=== PATIENT | female | born 1940 | race Caucasian/White ===

== ENCOUNTER 2016-07-20 12:40 | Emergency (ER) | payer MEDICARE, OTHER ==
[2016-07-20 11:08] LABS: BASOPHILS 0.3 %; BASOPHILS ABSOLUTE 0.02 10/3/uL (0.0-0.16); EOSINOPHILS 0.7 %; EOSINOPHILS ABSOLUTE 0.05 10/3/uL (0.0-0.53); IMMATURE GRANULOCYTES 0.3 %; IMMATURE GRANULOCYTES ABSOLUTE 0.02 10/3/uL (0.0-0.11); LYMPHOCYTES 16.7 %; LYMPHOCYTES ABSOLUTE 1.22 10/3/uL (0.67-4.30); MEAN PLATELET VOLUME 12.5 fL (9.2-13.0); MONOCYTES 6.8 %; NEUTROPHILS 75.2 %; NEUTROPHILS ABSOLUTE 5.49 10/3/uL (2.02-8.40); PLATELET COUNT 174 10/3/uL (150-400); RBC DISTRIBUTION WIDTH 16.1 % (12.0-16.0); RED CELL COUNT 4.53 10/6/uL (4.0-5.6); WHITE BLOOD CELLS 7.3 10/3/uL (4.5-10.5)
[2016-07-20 11:09] LABS: HEMATOCRIT 43.5 % (36.0-48.0); HEMOGLOBIN 13.5 g/dL (12.0-16.0); MANUAL DIFF NO %; MEAN CORPUSCULAR HEMOGLOB 29.8 pg (26.0-34.0)
[2016-07-20 11:14] LABS: ASCORBIC ACID (UR NOT ORDER) NEG (NEG); BILIRUBIN, URINE NEGATIVE (NEG); ER URINALYSIS TAT 0 Hrs 10 Mins; KETONE, URINE NEGATIVE (NEG); LEUKOCYTE ESTERASE(NOT OR NEG (NEG); NITRITE (URINE) NEG (NEG); WBC (NOT ORDERED) (RFLEX) 1 (0-5)
[2016-07-20 11:16] LABS: INTERNATIONAL NORMAL RATI 1.3 UNITS (-); PARTIAL THROMBO TIME 31.2 SEC (22.5-37.2)
[2016-07-20 11:23] LABS: CALCIUM, SERUM 9.3 MG/DL (8.5-10.4); CHEST PAIN PROFILE TAT 0 Hrs 19 Mins; CHLORIDE, SERUM 105 MMOL/L (96-112); CO2 (CARBON DIOXIDE) 30 MMOL/L (24-34); CREATININE 0.77 MG/DL (0.55-1.02); GFR AFRICAN AMERICAN 86 ML/MIN (>=60); GFR NON AFRICAN AMERICAN 74 ML/MIN (>=60); SODIUM, SERUM 143 MMOL/L (135-148); TROPONIN I <0.02 NG/ML (<0.05)
[2016-07-20 11:25] LABS: BUN (BLOOD UREA NITROGEN) 19 MG/DL (6-23); GLUCOSE, SERUM 106 MG/DL (60-99)
[2016-07-20 11:26] LABS: PROTIME (NOT ORD) 15.8 SEC (12.0-14.5)
[2016-07-20 11:29] LABS: PLATELET ESTIMATE ADQ (ADEQUATE)
[2016-07-20 11:30] LABS: GIANT PLATELET OCC; RBC MORPHOLOGY NORM (NORMAL)
[~2016-07-20 12:40] MED LIST: ACCUNEB INH; ASAB PO; BETAPACE80 PO; BUSPAR15 M1 PO; COZ50 PO; HYGROTON 25 MG25 MG PO; LIPITOR40 PO; P10 PO; PRILOSEC40 MG PO; PROAIR HFA INH; REFRESH1 % OP; SINGULAIR1 PO; VITAMIN D1000 UNI1 PO; VITC500 PO
[2016-12-25] MEDS ORDERED: AMOXIL875 PO (11:26)
[2016-12-25] MEDS ORDERED: AUG875 PO (11:26)
== END 2016-07-20 13:13 | disposition home or self-care (01) ==
LOC: ER 12:40
PROVIDERS: Emergency Medicine
DX: R00.2 Palpitations (principal); K21.9 Gastro-esophageal reflux disease without esophagitis; F41.9 Anxiety disorder, unspecified; Z95.0 Presence of cardiac pacemaker; Z87.01 Personal history of pneumonia (recurrent); Z88.8 Allergy status to other drugs, medicaments and biological substances; Z79.82 Long term (current) use of aspirin; Z79.899 Other long term (current) drug therapy
CPT/HCPCS: 71010; 80048; 81001; 83735; 84484; 85025; 85610; 85730; 93005; 93288; 99285

== ENCOUNTER 2016-09-12 19:22 | Inpatient (IN) | payer MEDICARE, OTHER ==
--- NOTE | ~2016-09-12 | HP ---
History And Physical [address] [address] NAME: DONTA VIZCARRA : 38 STATUS : ADM IN PAT#: [id number] AGE: 75 ADM/REG DATE : 09/12/16 MR#: [id number] REPORT SERV DATE: 09/13/16 DICTATED BY: ISAC OWENS DATE: 09/13/16 REPORT STATUS : Draft TRANSCRIBED BY: MODL DATE: 09/13/16 DATE OF ADMISSION: 09/12/2016 PHYSICIAN: Isac Owens M.D., Ph.D, F.A.C.C. HISTORY OF PRESENT ILLNESS: Ms Vizcarra is a 75-year-old woman with a history of paroxysmal atrial fibrillation, morbid obesity, sleep apnea, and chronic lung disease whom we have known for many years. She felt poorly last week with generalized weakness and fever. She went to [facility] thinking that she had pneumonia, which she had recurrently in the past. She was evaluated there by the hospitalist program as well as Infectious Disease. She had group B strep in her blood. Had an echo with a GUCCI that suggested a vegetation on the pacemaker lead. Has been on antibiotics and was transferred here for further evaluation per the patient's request. She currently feels a lot better. She has no fevers or chills. She has no nausea. She has chronic dyspnea without change, occasional wheeze. She has no palpitations or lightheadedness. She has no sputum production. REVIEW OF SYSTEMS: As per the history of present illness. Ten other systems are negative. PAST MEDICAL HISTORY: 1. Bronchiectasis and asthma with recurrent pneumonia. 2. Sleep apnea. 3. Atrial fibrillation with history of ablation by Dr. Amanda. 4. Pacemaker placement. Reportedly pacemaker dependent. 5. Hypertension. 6. Morbid obesity. FAMILY HISTORY: Noncontributory. SOCIAL HISTORY: The patient is . No tobacco use is reported. ALLERGIES: SUDAFED, FEXOFENADINE, DEXTROMETHORPHAN. HOME MEDICATIONS: Include acetaminophen, albuterol, Eliquis 5 p.o. b.i.d., Brovana, ascorbic acid, Lipitor 40 at bedtime, Pulmicort, BuSpar 15 daily, carvedilol 6.25 mg p.o. b.i.d., Maxipime, vitamin D, B12, Flovent, Lasix 40 p.o. b.i.d., lisinopril 10 daily, Claritin 10 daily, Medrol 32 daily, Protonix, potassium, Betapace 80 p.o. b.i.d. PHYSICAL EXAMINATION: VITAL SIGNS: Heart rate 68, blood pressure 164/75. GENERAL: The patient is pleasant, obese white female, in no apparent distress. HEENT: Conjunctivae are anicteric, no xanthelasma, lips without cyanosis. NECK: Supple, normal JVP, carotids +2 without bruit. LUNGS: Clear to auscultation bilaterally, no wheezes, rales or rhonchi. Decreased breath sounds in the bases. CARDIOVASCULAR: Regular rate and rhythm. Normal S1 and S2 with somewhat distant heart History And Physical [address] [address] NAME: DONTA VIZCARRA : 38 STATUS : ADM IN [facility]#: [id number] AGE: 75 ADM/REG DATE : 09/12/16 MR#: [id number] REPORT SERV DATE: 09/13/16 DICTATED BY: ISAC OWENS DATE: 09/13/16 REPORT STATUS : Draft TRANSCRIBED BY: CONNOR DATE: 09/13/16 sounds. No murmur or rub. PMI is nondisplaced. ABDOMEN: Obese, soft, nontender, nondistended, with normal bowel sounds. No hepatomegaly. EXTREMITIES: Mild chronic lower extremity edema. No clubbing or cyanosis. NEURO/PSYCH: Alert and oriented to person, place and time. No obvious neurologic deficits. Mood and affect normal. DATA: Labs pending. Telemetry shows AV paced rhythm. IMPRESSION: 1. 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 2. Atrial fibrillation, on chronic anticoagulation. 3. Morbid obesity. 4. History of bronchiectasis/asthma with recurrent pneumonias. 5. Sleep apnea. 6. Hypertension. 7. History of pacemaker placement with ablation by Dr. Amanda. Reportedly pacemaker dependent. RECOMMENDATIONS: Ms. Vizcarra presented with a febrile illness, had group B strep positive blood cultures at [facility], and a GUCCI suggesting vegetation on the pacemaker lead. She is clinically better on antibiotics. We will get Infectious Disease involved to see if they agree with that plan. I am going to get Pulmonary involved given the multiple pulmonary medicines that she is on, which were added at [facility] to see if she is on the appropriate treatment and how long to use her steroids. I will recheck labs here. Keep her n.p.o. Switch her over to heparin in case she does need a procedure. WO/MODL Isac Owens M.D., Ph.D, F.A.C.C. / [id number] CC: Isac Owens M.D., Ph.D, F.A.C.C. Keith Smith M.D.
--- NOTE | ~2016-09-12 | OP ---
Record Of Operation [facility] [address] [place]. [address] NAME: DONTA VIZCARRA : 38 STATUS : ADM IN PAT#: [id number] AGE: 75 ADM/REG DATE : 09/12/16 MR#: [id number] REPORT SERV DATE: 09/18/16 DICTATED BY: NASH STARR III DATE: 09/18/16 REPORT STATUS : Draft TRANSCRIBED BY: MODL DATE: 09/18/16 DATE OF PROCEDURE: 09/18/2016 PREOPERATIVE DIAGNOSIS: Left hydroureteronephrosis. POSTOPERATIVE DIAGNOSIS: Left ureteral calculus. PROCEDURE: Cystoscopy, left retrograde pyelogram, left ureteroscopy, and basket extraction of stone, removal of ureteral tissue, and stent placement. SURGEON: Nash Starr M.D. ANESTHESIA: General. SPECIMEN: Urine for culture. DRAINS: A 6 x 24 cm double-J ureteral stent. INDICATION: Ms. Vizcarra is a 75-year-old white female, found to have left hydroureteronephrosis. The consent is obtained for the above procedure. PROCEDURE IN DETAIL: After consent was obtained, the patient was identified. She was taken to the OR and put to sleep. She was positioned in the low lithotomy position and prepped and draped in the usual fashion. The 22-Burmese cystoscope was inserted into the bladder. The bladder appeared fairly normal. A cone-tipped ureteral catheter was inserted into the left ureteral orifice and a retrograde study was obtained showing a change in the diameter of the ureter in the pelvic ureter. Glidewire was passed up the left ureter into the dilated collecting system. A ureteral access sheath was used to dilate the transmural ureter. Rigid ureteroscopy was then performed and the stone was encountered. It was engaged with a Nitinol basket and then removed and passed off as specimen. The area, where the stone was, had some added tissue that was barely attached to the wall of the ureter. It was grasped with a basket and removed and passed off as specimen as well. The ureter was inspected. No other fragments were noted. The ureteroscope was removed. The guidewire was backloaded through the cystoscope, which was inserted into the bladder. A 6 x 24 cm double- J ureteral stent was advanced over the wire. When in position, the wire was removed, the stent was noted to coil in the dilated collecting system as well as the bladder. A string was left attached. The bladder was then drained. The scope removed. A knot was tied in the stent string closer to the meatus and excess cut off. The patient was awakened and taken to the recovery in stable condition. PH/MODL Nash Starr III, M.D. Record Of [address] [address] NAME: DONTA VIZCARRA : 38 STATUS : ADM IN PAT#: [id number] AGE: 75 ADM/REG DATE : 09/12/16 MR#: [id number] REPORT SERV DATE: 09/18/16 DICTATED BY: NASH STARR III DATE: 09/18/16 REPORT STATUS : Draft TRANSCRIBED BY: MODFrancisca DATE: 09/18/16 / [id number] CC: Isac Owens M.D., Ph.D, F.A.C.C. Keith Smith M.D.
--- NOTE | ~2016-09-12 | CN ---
Consultation Report [facility] [address] [place]. [address] NAME: DONTA RASHID : 38 STATUS : ADM IN PAT#: [id number] AGE: 75 ADM/REG DATE : 09/12/16 MR#: [id number] REPORT SERV DATE: 09/13/16 DICTATED BY: NASH CHOWDHURY DATE: 09/13/16 REPORT STATUS : Draft TRANSCRIBED BY: MODFrancisca DATE: 09/13/16 INFECTIOUS DISEASE CONSULT DATE OF CONSULTATION: REASON FOR CONSULT: Possible endocarditis. HISTORY OF PRESENT ILLNESS: A 75-year-old white lady with history of atrial fibrillation, status post ablation with pacemaker, chronic bronchiectasis, asthma, sleep apnea, obesity, hypertension, who was transferred from [facility] because of vegetation on the pacemaker wire and positive blood cultures for group B strep. Information is obtained from the patient as well as notes from [facility]. They do not have the actual culture results. She was hospitalized in January at [facility] with a "Streptococcus" pneumonia. She states, she has had dyspnea on exertion for maybe a year ago. She had some dental cleaning about a month ago. On 09/05/2016 while she was eating out, she had severe chills. She took some medication for it and did okay for a couple of days, but then on the 09/08/2016 while about to eat, she had again chills associated with shortness of breath, chest tightness, and followed by fever. She went to [facility], where they noticed wheezes and rhonchi. A chest x- ray is suggestive of pneumonia, so she got admitted. She might have been started on something like Rocephin and azithromycin. I do not have that information. LABORATORY WORK: Admission lab work showed a WBC of 10, hemoglobin 13, platelets 116. Lactic acid 2.1. Urinalysis with red blood cells. Admission blood cultures grew reportedly group B strep and a sputum culture grew Pseudomonas. Upon discussing with the patient, she has no toothaches or throat soreness and she had dental cleaning about a month ago. She reports, no nausea, no abdominal pain. She has multiple bowel movements a day, but that is a chronic finding. She has a history of hemorrhoids that bother her from time to time, but apparently not at this time. She reports some pain in the right great toenail on the lateral aspect of the nail, but no other skin lesions. She has prosthetic knees, but they do not seem to bother her. She has chronic problems with bladder emptying, where she dribbles, but she reports no dysuria. At [facility], she might have had a CT of the chest and I just saw in the pulmonary notes that there maybe a new right lung nodule. I do not have that report or the film. She had an echocardiogram initially followed by GUCCI that reportedly showed no problems with the valves, but there may be a vegetation on the pacemaker lead, ejection fraction was 55% to Consultation Report [facility] [address] [place]. [address] NAME: DONTA RASHID : 38 STATUS : ADM IN PAT#: [id number] AGE: 75 ADM/REG DATE : 09/12/16 MR#: [id number] REPORT SERV DATE: 09/13/16 DICTATED BY: NASH CHOWDHURY DATE: 09/13/16 REPORT STATUS : Draft TRANSCRIBED BY: CONNOR DATE: 09/13/16 60%. ID was consulted a couple of days ago and Dr. Lennon, stopped azithromycin and then switched yesterday from cefepime to Rocephin. Reportedly, repeat blood cultures were negative. Here at [facility], she is afebrile. Blood pressure is high. She is on 3 L of oxygen. Chest x-ray shows small effusions, left more than right. Lab work shows a CO2 of 38, creatinine 0.6, WBC 14, hemoglobin 12. PAST MEDICAL HISTORY: As I mentioned above plus history of hysterectomy for uterine cancer, tonsillectomy, cataract surgery. In 2012, she had an EGD that showed hiatal hernia, and a colonoscopy that showed hemorrhoids and polyps. ALLERGIES: ACCORDING TO THE CHART, DEBORAH CAUSE HEADACHES. FAMILY HISTORY: Heart disease. SOCIAL HISTORY: She is . MEDICATIONS ON ADMISSION: Albuterol, Eliquis, Brovana, vitamin C, Lipitor, Pulmicort, BuSpar, carvedilol, Rocephin, vitamin D, vitamin B12, Flovent, Lasix, hydralazine as needed, lisinopril, Claritin, Solu-Medrol, Protonix, potassium, and sotalol. PHYSICAL EXAMINATION: GENERAL: On exam, she is afebrile. She is alert. HEENT: Oral mucosa with minimal redness. No lesions. LUNGS: Decreased sounds. No wheezes, rhonchi, or rales. HEART: Distant sounds due to thick chest wall. No obvious murmurs. ABDOMEN: Very obese, nontender to palpation. No skin lesions under the abdominal pannus. EXTREMITIES: Legs with some dark linear bruises on posterior thighs, tenderness to palpation over the lateral aspect of the right great toe nail, where she has little bit of erythema. Knees without inflammatory changes. Hands and feet without signs of emboli. ASSESSMENT AND PLAN: 1. Group B strep septicemia. 2. Pacemaker wire vegetation by GUCCI done at [facility]. 3. History of obesity, sleep apnea, hypertension, atrial fibrillation, bronchiectasis. 4. Bilateral knee replacements. Potential sources of bacteremia, the hemorrhoids, some mild right great toe paronychia. She also had some dental cleaning about some months ago. The question is whether the pacemaker wire needs to be removed. Having a clot on the pacemaker wire is common, but obviously cannot tell if this is an infected clot. I Consultation Report [address] [place]. [address] NAME: DONTA RASHID : 38 STATUS : ADM IN PAT#: [id number] AGE: 75 ADM/REG DATE : 09/12/16 MR#: [id number] REPORT SERV DATE: 09/13/16 DICTATED BY: NASH CHOWDHURY DATE: 09/13/16 REPORT STATUS : Draft TRANSCRIBED BY: MODFrancisca DATE: 09/13/[address] Owens, who tells me that extraction be difficult and she is also pacemaker dependent. The illness seem to have an acute onset which would make an endocarditis less likely, but would not rule that out. There is a mention of possible new right lung nodule on the CT of the chest and we will try to get that report to look for any evidence of emboli. Antibiotics will be used, we will continue Rocephin. I discussed with the patient and the . Alternatively, another option would be to continue with a course of antibiotics as long as she is clinically improving, then follow, monitor her clinically, and microbiologically off antibiotics for evidence of recurrence of infection. I discussed with the patient and the . OCTAVIANO/CONNOR Nash Chowdhury M.D. / [id number] CC: Isac Owens M.D., Ph.D, F.A.C.C. Keith Smith M.D.
--- NOTE | ~2016-09-12 | DS ---
Discharge Summary [facility] [address] [place]. [address] NAME: DONTA RASHID : 38 STATUS : DIS IN PAT#: [id number] AGE: 75 ADM/REG DATE : 09/12/16 MR#: [id number] REPORT SERV DATE: 10/02/16 DICTATED BY: ISAC BONILLA DATE: 10/01/16 REPORT STATUS : Draft TRANSCRIBED BY: MODL DATE: 10/01/16 Data Collection from hospitalization DISCHARGE DIAGNOSES: 1. Bacteremia. 2. Paroxysmal atrial fibrillation. 3. Hydronephrosis. 4. Hematoma. 5. Hypertension. 6. Morbid obesity. 7. Sleep apnea. 8. Bronchiectasis. 9. Asthma. 10.Gastroesophageal reflux disease. 11.History of skin cancer. 12.History of uterine cancer. 13.Anxiety. 14.Anemia. CONSULTATIONS: Dr. Sumaya Chen, Dr. Nash Escudero, Dr. Nash Barrios. PROCEDURES PERFORMED: 1. Cystoscopy; left retrograde pyelogram; left ureteroscopy and basket extraction of stone; removal of ureteral tissue and stent placement, 09/18/2016. 2. CT scan of the abdomen and pelvis with contrast, 09/16/2016. PATHOLOGY: Left ureteral soft-tissue biopsy-dystrophic calcification and chronic inflammation. No tumor seen. DISCHARGE MEDICATIONS: Albuterol 1.25 mg via inhaler every six hours as needed, Proventil one nebulized inhaler every four hours as needed, Eliquis 5 mg twice a day, vitamin C 250 mg daily, Lipitor 40 mg at bedtime, BuSpar 5 mg twice a day, Coreg 6.25 mg twice a day, Zyrtec 10 mg daily, vitamin D 1000 units daily, vitamin B12 50 mcg daily, Flonase nasal spray one to two sprays nasally daily as needed, Breo Ellipta one puff via inhaler daily, Lasix 40 mg daily, Prinivil 20 mg daily, potassium chloride SR 20 mEq daily, Betapace 80 mg twice a day. CONDITION AT DISCHARGE: Stable. DISPOSITION: The patient was discharged home on a low-sodium, low-cholesterol, cardiac diet with activities as instructed. She would follow up with Dr. Isac Bonilla two to three weeks following discharge. She would follow up with Dr. Nash Escudero as instructed. HOSPITAL COURSE: This is a 75-year-old female, who has a history of paroxysmal atrial fibrillation, morbid obesity, sleep apnea, and chronic lung disease. We had known her for many years. She has felt poorly over the past week with generalized weakness and fevers. She went to [facility] [place] thinking that she had pneumonia, which she has had recurrently in the past. She was evaluated there by the hospitalist group as well as Infectious Disease. She had group B strep in her blood. An echocardiogram with transesophageal echocardiogram Discharge Summary [address] [address] NAME: DONTA RASHID : 38 STATUS : DIS IN PAT#: [id number] AGE: 75 ADM/REG DATE : 09/12/16 MR#: [id number] REPORT SERV DATE: 10/02/16 DICTATED BY: ISAC BONILLA DATE: 10/01/16 REPORT STATUS : Draft TRANSCRIBED BY: CONNOR DATE: 10/01/16 suggested a vegetation on the pacemaker leads. She has been on antibiotics and was transferred here for further evaluation at the patient's request. She currently states she felt a lot better. She had no fevers or chills at this time. She had no nausea. She does have chronic dyspnea without change and occasional wheeze. She was admitted to the hospital for further evaluation and treatment. Upon admission, she was felt to have possible/probable vegetation of the pacemaker lead. Telemetry had shown AV paced rhythm. She does have atrial fibrillation and is on chronic anticoagulation. She was going to be held n.p.o. She would be switched over to heparin in case she does need to undergo a procedure. The following day, she was seen by Dr. Sumaya Chen regarding underlying pulmonary disease with pulmonary medications. Chest x-ray revealed clear lungs. The patient has strep bacteremia in the setting of a patient who has bronchiectasis and possible pacemaker wire vegetation. Repeat transesophageal echocardiogram was going to be performed. Rocephin would be continued. The patient said she is on a nebulizer at home with Breo. It was felt this was most likely an albuterol nebulizer with Breo. Due to her obesity, it was recommended that she probably go on Pulmicort, budesonide, only with as needed albuterol. A flutter valve was going to be started. The patient was to use her home CPAP at night for obstructive sleep apnea. She also has obesity hypoventilation syndrome. She has an elevated bicarbonate and chronic hypoxia. She was also seen by Dr. Nash Escudero regarding possible endocarditis. Her blood pressure was elevated. She was on 3 L of oxygen. She was felt to have group B strep septicemia. Potential sources of bacteremia, included hemorrhoids and she does have some mild right great toe paronychia. She also had a dental cleaning about a month prior to this admission. The question was whether the pacemaker wire would need to be removed. Having a clot on the pacemaker wire is common, but obviously we could not tell if this was an infected clot. It was felt that extraction would be difficult as she is also pacemaker dependent. The illness seemed to have an acute onset, which would make an endocarditis less likely, but we would not rule that out. There was a mention of possible new right lung nodule on CT scan of the chest. We would try to review that report to look for any evidence of emboli. Rocephin was continued. On the , her blood pressure was still elevated. She was afebrile. Blood cultures were negative at this time. Rocephin was continued. On 09/15/2016, she complained of having some left leg pain. She was in a normal sinus rhythm. The patient had left upper thigh and groin pain after trying to get up. On 09/16/2016, she had no chest pain. She was in a normal sinus rhythm. White count was 13. The patient had no pain in the right great toe. There was some pain in the right upper thigh, like a muscle cramp. A CT scan of the abdomen and pelvis with contrast was performed. The right great toe did not appear infected. The patient and her favored medical therapy. Treatment options had been discussed, including pacemaker removal and wire removal versus medical treatments with long-term IV antibiotics. On the , she remained in a normal sinus rhythm. The patient was seen by Dr. Ramon Morley. The patient's right great toe had no erythema or edema at this time. There was no drainage. There were no signs of infection at this time. He was going to follow the patient as an outpatient. She was also seen by Dr. Nash Barrios. The patient had left hydroureteronephrosis down into the distal ureter and feels as if there is a stone in the area where the hydronephrosis ends. Creatinine level was normal. It was felt that she would need ureteroscopic evaluation for left hydroureteronephrosis. On the , the patient was taken to the Discharge Summary [address] [place]. [address] NAME: DONTA RASHID : 38 STATUS : DIS IN PAT#: [id number] AGE: 75 ADM/REG DATE : 09/12/16 MR#: [id number] REPORT SERV DATE: 10/02/16 DICTATED BY: ISAC BONILLA DATE: 10/01/16 REPORT STATUS : Draft TRANSCRIBED BY: MODFrancisca DATE: 10/01/[address] Nash Barrios, where she underwent the above-mentioned procedure. She tolerated this well and there were no complications. She still had some left thigh pain with a left thigh hematoma. Anticoagulation was on hold at this time. Blood cultures were negative. Urinalysis was negative. The left leg pain began to decrease a little. She had no abdominal pain. Postoperatively, a urine culture was obtained. On 09/19/2016, white count was 10.7. Discharge planning was performed. On 09/20/2016, she was feeling well. She had no complaints. There were no symptoms. Her lungs were clear. She was going to be on home outpatient IV antibiotic therapy. Repeat urinalysis and urine culture were obtained. Her thigh pain had improved. She had no new complaints. Discharge instructions were given. Due to her improved and stable condition, she was discharged home with the above-stated instructions. Information collected by: Nayely Phillip I submit the above information as my discharge summary. ALEXANDRIA/CONNOR Isac Bonilla M.D., Ph.D, F.A.C.C. / [id number] CC: Isac Bonilla M.D., Ph.D, F.A.C.C. Roosevelt Dunn M.D. Paul Henson III, M.D. Brian Burgan, D.PFinn
--- NOTE | ~2016-09-12 | CN ---
Consultation Report [facility] [address] [place]. [address] NAME: DONTA VIZCARRA : 38 STATUS : ADM IN PAT#: [id number] AGE: 75 ADM/REG DATE : 09/12/16 MR#: [id number] REPORT SERV DATE: 09/18/16 DICTATED BY: NASH STARR III DATE: 09/18/16 REPORT STATUS : Draft TRANSCRIBED BY: MODL DATE: 09/18/16 CONSULTATION DATE OF CONSULTATION: REASON FOR CONSULTATION: Left hydroureteronephrosis. HISTORY OF PRESENT ILLNESS: Ms. Vizcarra is a 75-year-old white female, admitted to the hospital with possible vegetation on a pacemaker wire. She has been seen by Infectious Disease. A CT scan has been obtained. She has left hydroureteronephrosis down into the distal ureter, and feels as if there is a stone in the area where the hydronephrosis ends. PAST MEDICAL HISTORY: Cataracts, hearing loss, pacemaker, hypertension, hypercholesterolemia, dysrhythmias, tachycardia, cardiac ablation, asthma, bronchiectasis, bronchitis, sleep apnea, osteoarthritis, frozen shoulder, gastroesophageal reflux disease, GI bleed, hiatal hernia, polyps, uterine cancer, skin cancer, anxiety, and anemia. PAST SURGICAL HISTORY: Tonsillectomy and adenoidectomy, bilateral knee replacement, hysterectomy, cardiac ablation, pacemaker placement, and carpal tunnel surgery. HOME MEDICATIONS: Reviewed. ALLERGIES: SHE IS ALLERGIC TO PSEUDOEPHEDRINE, DEBORAH, AND DEXTROMETHORPHAN. PHYSICAL EXAMINATION: The patient is obese. IMAGING: Her CT scan is reviewed. Once again, there was hydroureteronephrosis. Her creatinine is normal. ASSESSMENT: Left hydroureteronephrosis. PLAN: Ureteroscopic evaluation. PH/MODL Nash Starr III, M.D. / [id number] CC: Consultation Report [facility] [address] [place]. [address] NAME: DONTA VIZCARRA : 38 STATUS : ADM IN PAT#: [id number] AGE: 75 ADM/REG DATE : 09/12/16 MR#: [id number] REPORT SERV DATE: 09/18/16 DICTATED BY: NASH STARR III DATE: 09/18/16 REPORT STATUS : Draft TRANSCRIBED BY: CONNOR DATE: 09/18/16 Isac Owens M.D., Ph.D, F.A.C.C. Keith Smith M.D.
--- NOTE | ~2016-09-12 | CN ---
Consultation Report [facility] [address] [place]. [address] NAME: DONTA VIZCARRA : 36 STATUS : ADM IN PAT#: [id number] AGE: 75 ADM/REG DATE : 09/12/16 MR#: [id number] REPORT SERV DATE: 09/13/16 DICTATED BY: SUMAYA CHEN DATE: 09/13/16 REPORT STATUS : Draft TRANSCRIBED BY: MODL DATE: 09/13/16 PULMONARY CONSULTATION DATE OF CONSULTATION: 09/13/2016 REASON FOR CONSULTATION: Underlying pulmonary diseases with pulmonary medications. CHIEF COMPLAINT: Not feeling well for the last four days. HISTORY OF PRESENT ILLNESS: Mrs. Vizcarra is a 75-year-old female with a past medical history of bronchiectasis and strep pneumoniae. The patient states that she has had bronchiectasis since she was a teenager. She has had sputum production essentially almost daily since being a teenager. She had a CT scan in 10/2012, which showed underlying left lower lobe bronchiectasis. The patient states that she goes to Dr. Laughlin for her pulmonary needs for her underlying sleep apnea and notes that she is on Breo along with a nebulizer, but is not clear of which nebulizer she is on. She is not using a flutter valve. She is not having any increase in pneumonia or sputum production. However, at [facility], there was a thought that she may have had an underlying pneumonia. Chest x-ray done basically shows no pneumonia as the lungs are clear. She is quite obese, however, and difficult to get a clear picture. 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 PAST MEDICAL HISTORY: Bronchiectasis, asthma, history of recurrent pneumonia, sleep apnea, obesity, hypertension, atrial fibrillation, pacemaker placement with dependency. HOME MEDICATIONS: I have reviewed the home medication list, which has multiple inhalers, some of which were added at the outside hospital. The patient states that she is on a nebulizer and Breo. ALLERGIES: SUDAFED, FEXOFENADINE, DEXTROMETHORPHAN. SOCIAL HISTORY: The patient is . She is a lifelong nonsmoker. No alcohol or illicit drug use. FAMILY HISTORY: The patient states that both of her parents had heart failure, but both of them in their 90s. REVIEW OF SYSTEMS: All pertinent review of systems reviewed and is otherwise negative. PHYSICAL EXAMINATION: VITAL SIGNS: Afebrile, heart rate 70s, respiratory rate 18 to 20, currently oxygen saturation 96% on 3 L nasal cannula, blood pressure currently in the 160s to 180s. GENERAL: The patient is alert and oriented, in no acute distress, sitting up in a chair. Consultation Report [place] [id number] [facility] [place]. [address] NAME: DONTA VIZCARRA : 36 STATUS : ADM IN PAT#: [id number] AGE: 75 ADM/REG DATE : 09/12/16 MR#: [id number] REPORT SERV DATE: 09/13/16 DICTATED BY: SUMAYA CHEN DATE: 09/13/16 REPORT STATUS : Draft TRANSCRIBED BY: CONNOR DATE: 09/13/16 HEENT: Neck is supple. PULMONARY: Distant breath sounds bilaterally, but I do not hear any wheezing or rhonchorous breath sounds. CARDIAC: Distant heart sounds, but no murmurs. ABDOMEN: Soft, nontender, nondistended. EXTREMITIES: No cyanosis. Peripheral pulses noted. Extremity is warm to touch. No edema. NEUROLOGIC: The patient has no focal neurological deficits. LABORATORY EXAMINATION: The patient has mild leukocytosis, mild elevation in BUN, but her bicarbonate is 38. Chest x-ray, as noted above. Reviewed CT scan from 10/2012, which shows left lower lobe atelectasis and bronchiectasis with minimum pulmonary infiltrates. ASSESSMENT AND PLAN: Mrs. 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 1. Pacemaker wire vegetation: The patient is to undergo a repeat GUCIC, and Infectious Disease has been consulted. The patient is currently on Rocephin. 2. Asthma with bronchiectasis: The patient notes that she is on a nebulizer at home with Breo. This most likely is an albuterol nebulizer with Breo. She has been placed on several other medications. Due to her obesity, would recommend that she probably go on Pulmicort, budesonide only with as-needed albuterol. We will make that change. Of course, the patient will follow up with Dr. Laughlin, who may elect to change her medications around. We will start a flutter valve. 3. Obstructive sleep apnea: The patient is to use her home CPAP at nighttime. 4. Obesity hypoventilation syndrome: The patient most likely has obesity hypoventilation syndrome with her body habitus, elevated bicarbonate, and chronic hypoxia. Thank you very much for this consultation. Please call us if you have any further questions or concerns. The patient is to follow up with Dr. Laughlin of Pulmonary in the outpatient setting. HFQ/MODL Sumaya Chen MD / [id number] CC: Isac Owens M.D., Ph.D, F.A.C.C. Keith Smith M.D.
[2016-09-12] MEDS ORDERED: ELIQUIS 5 MG TAB5 MG PO (21:05)
[2016-09-12] MEDS ORDERED: MAX1 IV (21:07)
[2016-09-12] MEDS ORDERED: APRES10B IV (21:09)
[2016-09-12] MEDS ORDERED: L40 PO (21:10)
[2016-09-12] MEDS ORDERED: KDUR10 PO (21:11)
[2016-09-12] MEDS ORDERED: MEDROL32 MG PO (21:12)
[2016-09-12] MEDS ORDERED: COREG6 PO (21:13)
[2016-09-12] MEDS ORDERED: B12100T PO (21:14)
[2016-09-12] MEDS ORDERED: FLOVENT DISK100 MCG INH (21:15)
[2016-09-12] MEDS ORDERED: CLARIT10 PO (21:16)
[2016-09-12] MEDS ORDERED: PRIN20 PO (21:16)
[2016-09-12] MEDS ORDERED: BROVANA15 MCG INH (21:17)
[2016-09-12] MEDS ORDERED: PULRESP.5 INH (21:18)
[2016-09-12] MEDS ORDERED: PROTONIX PO (21:19)
[2016-09-12] MEDS ORDERED: ACET500CAP PO ×2 (21:20→21:21)
[2016-09-12] MEDS ORDERED: PROAIR HFA INH (21:29)
[2016-09-13 04:31] LABS: BASOPHILS 0.2 %; BASOPHILS ABSOLUTE 0.03 10/3/uL (0.0-0.16); EOSINOPHILS 0.1 %; EOSINOPHILS ABSOLUTE 0.01 10/3/uL (0.0-0.53); HEMATOCRIT 40.1 % (36.0-48.0); HEMOGLOBIN 12.8 g/dL (12.0-16.0); IMMATURE GRANULOCYTES 1.9 %; IMMATURE GRANULOCYTES ABSOLUTE 0.27 10/3/uL (0.0-0.11); LYMPHOCYTES 11.3 %; LYMPHOCYTES ABSOLUTE 1.58 10/3/uL (0.67-4.30); MANUAL DIFF NO %; MEAN CORPUS HGB CONC 31.9 g/dL (32.0-36.0); MEAN CORPUSCULAR HEMOGLOB 29.8 pg (26.0-34.0); MEAN CORPUSCULAR VOLUME 93.3 fL (80-100); MEAN PLATELET VOLUME 11.4 fL (9.2-13.0); MONOCYTES 9.2 %; MONOCYTES ABSOLUTE 1.29 10/3/uL (0.21-1.20); NEUTROPHILS 77.3 %; NEUTROPHILS ABSOLUTE 10.81 10/3/uL (2.02-8.40); PLATELET COUNT 204 10/3/uL (150-400)
[2016-09-13 04:42] LABS: BUN (BLOOD UREA NITROGEN) 25 MG/DL (6-23); CALCIUM, SERUM 8.4 MG/DL (8.5-10.4); CHLORIDE, SERUM 100 MMOL/L (96-112); CO2 (CARBON DIOXIDE) 38 MMOL/L (24-34); CREATININE 0.67 MG/DL (0.55-1.02); GFR AFRICAN AMERICAN 98 ML/MIN (>=60); GFR NON AFRICAN AMERICAN 85 ML/MIN (>=60); GLUCOSE, SERUM 117 MG/DL (60-99); POTASSIUM, SERUM 3.5 MMOL/L (3.5-5.3); SODIUM, SERUM 143 MMOL/L (135-148)
[2016-09-13] MEDS ORDERED: ZYRTEC ALLGY10 MG PO (09:58)
[2016-09-13] MEDS ORDERED: FLONASE NAS (10:01)
[2016-09-13] MEDS ORDERED: BREO ELLIPTA INH (10:05)
[2016-09-13] MEDS ORDERED: ALBUTEROL5 INH (10:09)
[2016-09-13 10:45] LABS: INTERNATIONAL NORMAL RATI 1.3 UNITS (-); PARTIAL THROMBO TIME 26.9 SEC (22.5-37.2); PROTIME (NOT ORD) 16.1 SEC (12.0-14.5)
[2016-09-14 01:30] LABS: BASOPHILS 0.2 %; BASOPHILS ABSOLUTE 0.02 10/3/uL (0.0-0.16); EOSINOPHILS ABSOLUTE 0.12 10/3/uL (0.0-0.53); HEMATOCRIT 42.8 % (36.0-48.0); HEMOGLOBIN 13.7 g/dL (12.0-16.0); IMMATURE GRANULOCYTES 1.5 %; IMMATURE GRANULOCYTES ABSOLUTE 0.19 10/3/uL (0.0-0.11); LYMPHOCYTES 12.3 %; LYMPHOCYTES ABSOLUTE 1.54 10/3/uL (0.67-4.30); MEAN CORPUSCULAR HEMOGLOB 29.6 pg (26.0-34.0); MEAN CORPUSCULAR VOLUME 92.4 fL (80-100); MEAN PLATELET VOLUME 11.1 fL (9.2-13.0); MONOCYTES 6.8 %; MONOCYTES ABSOLUTE 0.85 10/3/uL (0.21-1.20); NEUTROPHILS 78.2 %; NEUTROPHILS ABSOLUTE 9.79 10/3/uL (2.02-8.40); PLATELET COUNT 190 10/3/uL (150-400); RED CELL COUNT 4.63 10/6/uL (4.0-5.6); WHITE BLOOD CELLS 12.5 10/3/uL (4.5-10.5)
[2016-09-14 01:37] LABS: MANUAL DIFF NO %
[2016-09-14 01:42] LABS: BUN (BLOOD UREA NITROGEN) 25 MG/DL (6-23); CALCIUM, SERUM 8.6 MG/DL (8.5-10.4); CHLORIDE, SERUM 95 MMOL/L (96-112); CO2 (CARBON DIOXIDE) 39 MMOL/L (24-34); CREATININE 0.73 MG/DL (0.55-1.02); GFR AFRICAN AMERICAN 92 ML/MIN (>=60); GFR NON AFRICAN AMERICAN 79 ML/MIN (>=60); GLUCOSE, SERUM 134 MG/DL (60-99); POTASSIUM, SERUM 3.1 MMOL/L (3.5-5.3); SODIUM, SERUM 138 MMOL/L (135-148)
[2016-09-15 04:24] LABS: BASOPHILS 0.1 %; BASOPHILS ABSOLUTE 0.01 10/3/uL (0.0-0.16); EOSINOPHILS 1.8 %; EOSINOPHILS ABSOLUTE 0.23 10/3/uL (0.0-0.53); HEMATOCRIT 41.6 % (36.0-48.0); HEMOGLOBIN 13.4 g/dL (12.0-16.0); IMMATURE GRANULOCYTES 1.6 %; IMMATURE GRANULOCYTES ABSOLUTE 0.21 10/3/uL (0.0-0.11); LYMPHOCYTES 14.1 %; LYMPHOCYTES ABSOLUTE 1.84 10/3/uL (0.67-4.30); MEAN CORPUS HGB CONC 32.2 g/dL (32.0-36.0); MEAN CORPUSCULAR HEMOGLOB 29.5 pg (26.0-34.0); MEAN CORPUSCULAR VOLUME 91.6 fL (80-100); MEAN PLATELET VOLUME 11.7 fL (9.2-13.0); MONOCYTES 6.8 %; MONOCYTES ABSOLUTE 0.89 10/3/uL (0.21-1.20); NEUTROPHILS 75.6 %; NEUTROPHILS ABSOLUTE 9.83 10/3/uL (2.02-8.40); PLATELET COUNT 214 10/3/uL (150-400); RBC DISTRIBUTION WIDTH 15.2 % (12.0-16.0); RED CELL COUNT 4.54 10/6/uL (4.0-5.6)
[2016-09-15 04:25] LABS: MANUAL DIFF NO %
[2016-09-15 04:39] LABS: CALCIUM, SERUM 8.7 MG/DL (8.5-10.4); CHLORIDE, SERUM 96 MMOL/L (96-112); CO2 (CARBON DIOXIDE) 38 MMOL/L (24-34); CREATININE 0.72 MG/DL (0.55-1.02); GFR AFRICAN AMERICAN 94 ML/MIN (>=60); GFR NON AFRICAN AMERICAN 81 ML/MIN (>=60); GLUCOSE, SERUM 117 MG/DL (60-99); POTASSIUM, SERUM 3.5 MMOL/L (3.5-5.3); SODIUM, SERUM 139 MMOL/L (135-148)
[2016-09-15 04:40] LABS: BUN (BLOOD UREA NITROGEN) 21 MG/DL (6-23)
[2016-09-16 05:44] LABS: BASOPHILS 0.1 %; BASOPHILS ABSOLUTE 0.01 10/3/uL (0.0-0.16); EOSINOPHILS 1.9 %; EOSINOPHILS ABSOLUTE 0.23 10/3/uL (0.0-0.53); IMMATURE GRANULOCYTES 0.8 %; LYMPHOCYTES 13.5 %; LYMPHOCYTES ABSOLUTE 1.63 10/3/uL (0.67-4.30); MEAN CORPUS HGB CONC 31.2 g/dL (32.0-36.0); MEAN CORPUSCULAR HEMOGLOB 29.4 pg (26.0-34.0); MEAN PLATELET VOLUME 11.4 fL (9.2-13.0); MONOCYTES 8.8 %; MONOCYTES ABSOLUTE 1.06 10/3/uL (0.21-1.20); NEUTROPHILS 74.9 %; NEUTROPHILS ABSOLUTE 9.05 10/3/uL (2.02-8.40); PLATELET COUNT 194 10/3/uL (150-400); RBC DISTRIBUTION WIDTH 15.5 % (12.0-16.0); RED CELL COUNT 3.74 10/6/uL (4.0-5.6); WHITE BLOOD CELLS 12.1 10/3/uL (4.5-10.5)
[2016-09-16 05:46] LABS: HEMATOCRIT 35.3 % (36.0-48.0); MANUAL DIFF NO %; MEAN CORPUSCULAR VOLUME 94.4 fL (80-100)
[2016-09-16 05:57] LABS: BUN (BLOOD UREA NITROGEN) 24 MG/DL (6-23); CALCIUM, SERUM 8.8 MG/DL (8.5-10.4); CHLORIDE, SERUM 96 MMOL/L (96-112); CO2 (CARBON DIOXIDE) 39 MMOL/L (24-34); CREATININE 0.77 MG/DL (0.55-1.02); GFR AFRICAN AMERICAN 86 ML/MIN (>=60); GFR NON AFRICAN AMERICAN 74 ML/MIN (>=60); GLUCOSE, SERUM 120 MG/DL (60-99); POTASSIUM, SERUM 3.5 MMOL/L (3.5-5.3); SODIUM, SERUM 139 MMOL/L (135-148)
[2016-09-18 05:48] LABS: BASOPHILS 0.1 %; BASOPHILS ABSOLUTE 0.01 10/3/uL (0.0-0.16); EOSINOPHILS 1.2 %; EOSINOPHILS ABSOLUTE 0.16 10/3/uL (0.0-0.53); HEMOGLOBIN 9.8 g/dL (12.0-16.0); IMMATURE GRANULOCYTES 0.5 %; IMMATURE GRANULOCYTES ABSOLUTE 0.06 10/3/uL (0.0-0.11); LYMPHOCYTES 12.5 %; LYMPHOCYTES ABSOLUTE 1.65 10/3/uL (0.67-4.30); MEAN CORPUS HGB CONC 32.6 g/dL (32.0-36.0); MEAN CORPUSCULAR HEMOGLOB 29.9 pg (26.0-34.0); MEAN CORPUSCULAR VOLUME 91.8 fL (80-100); MEAN PLATELET VOLUME 11.4 fL (9.2-13.0); MONOCYTES 9.8 %; MONOCYTES ABSOLUTE 1.29 10/3/uL (0.21-1.20); NEUTROPHILS 75.9 %; NEUTROPHILS ABSOLUTE 10.04 10/3/uL (2.02-8.40); PLATELET COUNT 184 10/3/uL (150-400); RBC DISTRIBUTION WIDTH 15.6 % (12.0-16.0); RED CELL COUNT 3.28 10/6/uL (4.0-5.6); WHITE BLOOD CELLS 13.2 10/3/uL (4.5-10.5)
[2016-09-18 05:49] LABS: HEMATOCRIT 30.1 % (36.0-48.0); MANUAL DIFF NO %
[2016-09-18 05:54] LABS: BUN (BLOOD UREA NITROGEN) 21 MG/DL (6-23); CALCIUM, SERUM 8.9 MG/DL (8.5-10.4); CHLORIDE, SERUM 98 MMOL/L (96-112); CREATININE 0.73 MG/DL (0.55-1.02); GFR AFRICAN AMERICAN 92 ML/MIN (>=60); GFR NON AFRICAN AMERICAN 79 ML/MIN (>=60); GLUCOSE, SERUM 103 MG/DL (60-99); POTASSIUM, SERUM 3.7 MMOL/L (3.5-5.3); SGOT(AST) 31 U/L (5-40); SGPT(ALT) 24 U/L (5-65); SODIUM, SERUM 139 MMOL/L (135-148); TOTAL BILIRUBIN 0.8 MG/DL (0-1.2); TOTAL PROTEIN 6.5 G/DL (6.0-8.5)
[2016-09-18 05:55] LABS: A/G RATIO 0.6 (0.7-1.9); ALBUMIN 2.4 G/DL (3.5-5.0); ALKALINE PHOSPHATASE 82 U/L (45-117); CO2 (CARBON DIOXIDE) 34 MMOL/L (24-34); GLOBULIN 4.1 G/DL (2.5-4.1)
[2016-09-18 06:52] LABS: ASCORBIC ACID (UR NOT ORDER) NEG (NEG); BILIRUBIN, URINE NEGATIVE (NEG); KETONE, URINE NEGATIVE (NEG); LEUKOCYTE ESTERASE(NOT OR NEG (NEG); WBC (NOT ORDERED) (RFLEX) 1 (0-5)
[2016-09-18 19:56] LABS: WBC (NOT ORDERED) (RFLEX) 0 (0-5)
[2016-09-18 20:06] LABS: ASCORBIC ACID (UR NOT ORDER) NEG (NEG); BILIRUBIN, URINE NEGATIVE (NEG); KETONE, URINE NEGATIVE (NEG); LEUKOCYTE ESTERASE(NOT OR NEG (NEG)
[2016-09-19 05:19] LABS: BASOPHILS 0.1 %; BASOPHILS ABSOLUTE 0.01 10/3/uL (0.0-0.16); EOSINOPHILS 0.8 %; EOSINOPHILS ABSOLUTE 0.09 10/3/uL (0.0-0.53); HEMATOCRIT 28.4 % (36.0-48.0); IMMATURE GRANULOCYTES 0.4 %; IMMATURE GRANULOCYTES ABSOLUTE 0.04 10/3/uL (0.0-0.11); LYMPHOCYTES ABSOLUTE 1.29 10/3/uL (0.67-4.30); MEAN CORPUS HGB CONC 31.7 g/dL (32.0-36.0); MEAN CORPUSCULAR HEMOGLOB 29.5 pg (26.0-34.0); MEAN CORPUSCULAR VOLUME 93.1 fL (80-100); MEAN PLATELET VOLUME 11.6 fL (9.2-13.0); MONOCYTES 9.9 %; MONOCYTES ABSOLUTE 1.06 10/3/uL (0.21-1.20); NEUTROPHILS 76.8 %; NEUTROPHILS ABSOLUTE 8.24 10/3/uL (2.02-8.40); PLATELET COUNT 165 10/3/uL (150-400); RBC DISTRIBUTION WIDTH 15.9 % (12.0-16.0); RED CELL COUNT 3.05 10/6/uL (4.0-5.6); WHITE BLOOD CELLS 10.7 10/3/uL (4.5-10.5)
[2016-09-19 05:20] LABS: MANUAL DIFF NO %
[2016-09-19 05:21] LABS: CALCIUM, SERUM 8.4 MG/DL (8.5-10.4); CHLORIDE, SERUM 101 MMOL/L (96-112); CO2 (CARBON DIOXIDE) 33 MMOL/L (24-34); CREATININE 0.86 MG/DL (0.55-1.02); GFR AFRICAN AMERICAN 76 ML/MIN (>=60); GFR NON AFRICAN AMERICAN 65 ML/MIN (>=60); POTASSIUM, SERUM 3.8 MMOL/L (3.5-5.3); SODIUM, SERUM 141 MMOL/L (135-148)
[2016-09-19 05:27] LABS: BUN (BLOOD UREA NITROGEN) 15 MG/DL (6-23); GLUCOSE, SERUM 129 MG/DL (60-99)
[2016-09-20 04:24] LABS: BUN (BLOOD UREA NITROGEN) 22 MG/DL (6-23); CALCIUM, SERUM 8.5 MG/DL (8.5-10.4); CHLORIDE, SERUM 101 MMOL/L (96-112); CO2 (CARBON DIOXIDE) 34 MMOL/L (24-34); CREATININE 0.87 MG/DL (0.55-1.02); GFR AFRICAN AMERICAN 74 ML/MIN (>=60); GFR NON AFRICAN AMERICAN 64 ML/MIN (>=60); GLUCOSE, SERUM 118 MG/DL (60-99); POTASSIUM, SERUM 3.8 MMOL/L (3.5-5.3); SODIUM, SERUM 140 MMOL/L (135-148)
[2016-09-20 10:26] LABS: ASCORBIC ACID (UR NOT ORDER) NEG (NEG); BILIRUBIN, URINE NEGATIVE (NEG); KETONE, URINE NEGATIVE (NEG); WBC (NOT ORDERED) (RFLEX) 3 (0-5)
[2016-09-20 10:28] LABS: LEUKOCYTE ESTERASE(NOT OR TRACE (NEG)
[2016-09-23 23:25] LABS: SOURCE OF STONE Left Ureter (()); STONE COMPOSITION TWO DNR (())
[2016-12-25] MEDS ORDERED: AMOXIL875 PO (11:26)
[2016-12-25] MEDS ORDERED: AUG875 PO (11:26)
== END 2016-09-20 16:20 | disposition home or self-care (01) | DRG 854 ==
LOC: 5NO 19:22
PROVIDERS: Internal Medicine Cardiovascular Disease; Internal Medicine Infectious Disease; Urology
PROC: 0TC78ZZ Extirpation of Matter from Left Ureter, Via Natural or Artificial Opening Endoscopic (ICD-10-PCS; 2016-09-18)
PROC: 0T778DZ Dilation of Left Ureter with Intraluminal Device, Via Natural or Artificial Opening Endoscopic (ICD-10-PCS; 2016-09-18)
PROC: BT1F1ZZ Fluoroscopy of Left Kidney, Ureter and Bladder using Low Osmolar Contrast (ICD-10-PCS; principal; 2016-09-18 13:45)
DX: A40.1 Sepsis due to streptococcus, group B (principal); T82.7XXA Infection and inflammatory reaction due to other cardiac and vascular devices, implants and grafts, initial encounter; N13.2 Hydronephrosis with renal and ureteral calculous obstruction; Z68.42 Body mass index [BMI] 45.0-49.9, adult; I48.0 Paroxysmal atrial fibrillation; E66.01 Morbid (severe) obesity due to excess calories; I10 Essential (primary) hypertension; Z79.01 Long term (current) use of anticoagulants; Z87.01 Personal history of pneumonia (recurrent); Z96.653 Presence of artificial knee joint, bilateral; J45.909 Unspecified asthma, uncomplicated; H91.90 Unspecified hearing loss, unspecified ear; E78.00 Pure hypercholesterolemia, unspecified; M19.90 Unspecified osteoarthritis, unspecified site; K21.9 Gastro-esophageal reflux disease without esophagitis; G47.33 Obstructive sleep apnea (adult) (pediatric)
CPT/HCPCS: 71020; 74177; 80048; 80053; 81001; 82365; 83605; 83735; 85025; 85610; 85730; 87040; 87086; 88305; 93005; 94640; 94668; A9270-GY; C1769; C1874; C2617; J0692; J2370; J2405; J2710; J3010; P9045; Q9967

== ENCOUNTER 2016-10-24 11:16 | Day surgery (SDC) | payer MEDICARE, OTHER ==
--- NOTE | ~2016-10-24 | OP ---
Record Of Operation [facility] [address] [place]. [address] NAME: DONTA VIZCARRA : 36 STATUS : REG [facility]#: [id number] AGE: 75 ADM/REG DATE : 10/24/16 MR#: [id number] REPORT SERV DATE: 10/24/16 DICTATED BY: NASH STARR III DATE: 10/24/16 REPORT STATUS : Draft TRANSCRIBED BY: MODL DATE: 10/24/16 DATE OF PROCEDURE: 10/24/2016 PREOPERATIVE DIAGNOSIS: Left ureteral stent. POSTOPERATIVE DIAGNOSIS: Left ureteral stent. PROCEDURE: Cystoscopy and stent removal. ANESTHESIA: General. SPECIMENS: None. BLOOD LOSS: None. INDICATION: Ms. Vizcarra is a 75-year-old white female, who recently had a ureteral stent placed at the end of the left ureteroscopic procedure. Consent is obtained for cystoscopy and stent removal. DESCRIPTION OF PROCEDURE: After the consent was obtained, the patient was identified. She was taken to the OR and put to sleep. She was positioned in the lithotomy and prepped and draped in usual fashion. A 22-Malay cystoscope was inserted into the bladder with the obturator. The stent was visualized and grasped with the alligator forceps and removed. The scope was then reinserted and the bladder was drained. The patient was awakened and taken to recovery room in stable condition. PH/CONNOR Nash Starr III, M.D. / [id number] CC: Roosevelt Mcgraw III, M.D.
[~2016-10-24 11:16] MED LIST changes: +ACET500CAP PO; +ALBUTEROL5 INH; +APRES10B IV; +B12100T PO; +BREO ELLIPTA INH; +BROVANA15 MCG INH; +CLARIT10 PO; +COREG6 PO; +ELIQUIS 5 MG TAB5 MG PO; +FLONASE NAS; +FLOVENT DISK100 MCG INH; +KDUR10 PO; +L40 PO; +MAX1 IV; +MEDROL32 MG PO; +PRIN20 PO; +PROTONIX PO; +PULRESP.5 INH; +ZYRTEC ALLGY10 MG PO
[2016-12-25] MEDS ORDERED: AMOXIL875 PO (11:26)
[2016-12-25] MEDS ORDERED: AUG875 PO (11:26)
== END 2016-10-24 23:59 | disposition home or self-care (01) ==
LOC: SDC 11:16
PROVIDERS: Urology
PROC: 0TP98DZ Removal of Intraluminal Device from Ureter, Via Natural or Artificial Opening Endoscopic (ICD-10-PCS; principal; 2016-10-24 12:45)
DX: Z46.6 Encounter for fitting and adjustment of urinary device (principal); J45.909 Unspecified asthma, uncomplicated; J47.9 Bronchiectasis, uncomplicated; G47.33 Obstructive sleep apnea (adult) (pediatric); Z99.89 Dependence on other enabling machines and devices; I10 Essential (primary) hypertension; I48.91 Unspecified atrial fibrillation; E78.00 Pure hypercholesterolemia, unspecified; K21.9 Gastro-esophageal reflux disease without esophagitis; E66.01 Morbid (severe) obesity due to excess calories; Z68.42 Body mass index [BMI] 45.0-49.9, adult; Z95.0 Presence of cardiac pacemaker; Z79.51 Long term (current) use of inhaled steroids; Z79.01 Long term (current) use of anticoagulants; Z79.899 Other long term (current) drug therapy; Z88.8 Allergy status to other drugs, medicaments and biological substances
CPT/HCPCS: 80048; 85014; 85018; 93005; J2405; J3010